=== PATIENT | female | born 1995 | race Two or more races ===

== ENCOUNTER 2017-04-25 06:38 | Inpatient (IN) | payer OTHER ==
[~2017-04-25] VITALS: Ht 160 cm; Wt 83.5 kg
[2017-04-25] VITALS (9 sets, daily range): BP systolic 103–124; BP diastolic 55–79
[~2017-04-25 06:38] MED LIST: ACYCLOVIR400 MG PO; ELAVIL50 MG PO; MOTRIN800 MG PO; PERCOCET 5/31 TABLET PO; PRENATAL TABLE1 EAC3 PO; SEASONIQUE 01 TABLET PO
[2017-04-25 07:28] LABS: EOSINOPHIL COUNT 0.1 K/uL (0-0.3); HEMATOCRIT 38.2 % (36.0-46.0); IMMATURE GRANULOCYTE (%) 1.8 % (0.0-0.7); IMMATURE GRANULOCYTE COUNT 0.2 K/uL; INSTRUMENT ABS NEUTROPHIL CT 6.5 K/uL; LYMPHOCYTE COUNT 2.5 K/uL (1.0-2.8); MCH 26.6 PG (29.0-34.0); MCHC 31.7 G/DL (30.0-36.0); MEAN PLAT.VOLUME 11.4 uM^3 (9.5-12.4); MONOCYTE (%) 9.7 % (3-12); NEUTROPHIL COUNT 6.5 K/uL (1.8-6.4); PLATELET COUNT 197 K/uL (156-360); RBC DIS.WIDTH-CV 15.3 % (11.8-14.6); RED BLOOD COUNT 4.55 M/uL (3.80-5.20); WHITE BLOOD COUNT 10.4 K/uL (4.1-10.2)
[2017-04-25] MEDS ORDERED: ENDOCET 5-3251 EACH PO (12:35)
[2017-04-25] MEDS ORDERED: IBUPROFEN800 MG PO (12:35)
[2017-04-25] MEDS ORDERED: DOCUSATE SODIU100 MG PO (12:35)
[2017-04-26 02:55] VITALS: BP 97/56
[2017-04-26 06:30] LABS: EOSINOPHIL (%) 0.5 % (0-5); EOSINOPHIL COUNT 0.1 K/uL (0-0.3); HEMATOCRIT 33.1 % (36.0-46.0); IMMATURE GRANULOCYTE (%) 1.1 % (0.0-0.7); IMMATURE GRANULOCYTE COUNT 0.2 K/uL; INSTRUMENT ABS NEUTROPHIL CT 10.3 K/uL; LYMPHOCYTE COUNT 2.9 K/uL (1.0-2.8); MCH 27.6 PG (29.0-34.0); MCHC 32.3 G/DL (30.0-36.0); MCV 85.3 FL (83-99); MEAN PLAT.VOLUME 11.8 uM^3 (9.5-12.4); MONOCYTE (%) 9.5 % (3-12); MONOCYTE COUNT 1.4 K/uL (0-0.8); NEUTROPHIL (%) 69.3 % (45-76); NEUTROPHIL COUNT 10.3 K/uL (1.8-6.4); PLATELET COUNT 200 K/uL (156-360); RBC DIS.WIDTH-CV 15.4 % (11.8-14.6); RBC DIS.WIDTH-SD 46.7 % (39-53); RED BLOOD COUNT 3.88 M/uL (3.80-5.20); WHITE BLOOD COUNT 14.9 K/uL (4.1-10.2)
[2017-04-26 07:05] VITALS: BP 113/65
[2017-04-26 11:00] VITALS: BP 100/55
[2017-04-26 14:55] VITALS: BP 113/59
[2017-04-27 02:47] VITALS: BP 107/53
[2017-04-27 07:03] VITALS: BP 116/62
[2017-04-27 14:59] VITALS: BP 111/65
[2017-04-28 07:44] VITALS: BP 132/70
== END 2017-04-28 13:39 | disposition home or self-care (01) | DRG 766 ==
LOC: LDRP-OP → 2WEST 06:39 → LDRP-OP 06-06 12:47
PROVIDERS: Obstetrics & Gynecology; Obstetrics & Gynecology Gynecology
PROC: 10D00Z1 Extraction of Products of Conception, Low, Open Approach (ICD-10-PCS; principal; 2017-04-25)
DX: O34.211 Maternal care for low transverse scar from previous cesarean delivery (principal); O77.0 Labor and delivery complicated by meconium in amniotic fluid; O99.824 Streptococcus B carrier state complicating childbirth; O62.2 Other uterine inertia; Z3A.38 38 weeks gestation of pregnancy; Z37.0 Single live birth
CPT/HCPCS: 85025; 86900; 86901; J0690; J1050; J1100; J2210; J2270; J2274; J2405; J2590; J2765; J7120